=== PATIENT | female | born 1995 | race American Indian/Alaskan Native ===

== ENCOUNTER → 2019-01-16 | Emergency (ER) | payer SELFPAY ==
[~2019-01-16] MED LIST: NACL 0.9% 1000 ML 1,000 ML IV ONE; ZOFRAN IV ONE
[2019-01-16 23:51] LABS: Basophils % (Auto) 0.4 % (0.0-1.8); Eosinophils # (Auto) 0.1 K/mm3 (0.0-0.4); Eosinophils % (Auto) 0.6 % (0.0-4.3); Hematocrit 39.4 % (30.3-42.9); Hemoglobin 13.7 gm/dl (10.1-14.3); Lymphocytes # (Auto) 1.9 K/mm3 (1.2-5.4); Mean Corpuscular HGB Conc 35 % (30-34); Mean Corpuscular Volume 90 fl (79-97); Monocytes # (Auto) 0.7 K/mm3 (0.0-0.8); Platelet Count 187 K/mm3 (140-440); Red Blood Count 4.39 M/mm3 (3.65-5.03); Red Cell Distribution Width 13.2 % (13.2-15.2)
[2019-01-17 00:08] LABS: Alanine Aminotransferase 10 units/L (7-56); Albumin 4.4 g/dL (3.9-5); BUN/Creatinine Ratio 16; Blood Urea Nitrogen 11 mg/dL (7-17); Calcium 9.2 mg/dL (8.4-10.2); Hemolysis Index 2
[2019-01-17 00:32] LABS: Bilirubin,Urine MOD (Negative); Blood,Urine NEG (Negative); Color,Urine Amber (Yellow); Mucus,Urine 3+ /HPF; Urobilinogen,Urine < 2.0 mg/dL (<2.0)
[2019-01-17 00:35] LABS: Ictotest,Urine Negative (Negative)
--- NOTE | 2019-01-17 02:02 | Emergency Department Report ---
HPI - General Chief Complaint: Abdominal Pain Time Seen by Provider: 01/17/19 01:51 - HPI HPI: Room 7 The patient is a 23-year-old female presented with a chief complaint of nausea and vomiting. The patient states yesterday she went out with friends and consumed 5 drinks (normal for her). The patient states her friends told her she was very drunk and "blacked out." Patient states she awakened this afternoon at 13:00 at home and experienced frequent nausea and vomiting. Patient states her nausea and vomiting continued prompting her to come to the emergency department. Patient denies any history of fever or sick contacts. Patient states she still feels nauseous now has left lower quadrant abdominal pain that worsens whenever she vomits Location: [See above] Duration: [See above] Quality: [See above] Severity: [See above] Modifying factors: [see above] Context: [see above] Mode of transportation: [not driving] ED Past Medical Hx - Past Medical History Previous Medical History?: No - Surgical History Past Surgical History?: Yes Additional Surgical History: both ear s/p( right X2) - Family History Family history: no significant - Social History Substance Use Type: None (denies illicit drug use), Alcohol (frequently) - Medications Home Medications: Home Medications Medication Instructions Recorded Confirmed Last Taken Type Ondansetron [Zofran ODT TAB] 8 mg PO Q8HR #20 tab.rapdis 01/17/19 Unknown Rx ED Review of Systems ROS: Stated complaint: VOMITING Other details as noted in HPI Constitutional: no symptoms reported Eyes: denies: eye pain ENT: denies: throat pain Respiratory: no symptoms reported Cardiovascular: denies: chest pain Endocrine: no symptoms reported Gastrointestinal: nausea, vomiting Genitourinary: denies: dysuria Musculoskeletal: denies: back pain Neurological: denies: headache Physical Exam - Physical Exam Vital Signs: Vital Signs 01/16/19 01/17/19 23:01 01:52 Temperature 98.7 F Pulse Rate 85 Respiratory 18 18 Rate Blood Pressure 104/66 O2 Sat by Pulse 98 Oximetry Physical Exam: GENERAL: The patient is well-developed well-nourished female lying on stretcher not appearing to be in acute distress. [] HEENT: Normocephalic. Atraumatic. Extraocular motions are intact. Patient has moist mucous membranes. NECK: Supple. No meningitic signs are noted. Trachea midline CHEST/LUNGS: Clear to auscultation. There is no respiratory distress noted. HEART/CARDIOVASCULAR: Regular. There is no tachycardia. There is no gallop rub or murmur. ABDOMEN: Abdomen is soft, with mild discomfort to palpation in the left lower quadrant. There is no rebound or guarding. Patient has normal bowel sounds. There is no abdominal distention. SKIN: There is no rash. There is no edema. There is no diaphoresis. NEURO: The patient is awake, alert, and oriented. The patient is cooperative. The patient has no focal neurologic deficits. The patient has normal speech. Cranial nerves II through XII grossly intact, no drift MUSCULOSKELETAL: There is no evidence of acute injury. ED Course Vital Signs 01/16/19 01/17/19 23:01 01:52 Temperature 98.7 F Pulse Rate 85 Respiratory 18 18 Rate Blood Pressure 104/66 O2 Sat by Pulse 98 Oximetry - Reevaluation(s) Reevaluation #1: 01/17/19 02:54 Patient tolerated po ED Medical Decision Making - Lab Data Result diagrams: 01/16/19 23:27 01/16/19 23:27 Laboratory Tests 01/16/19 01/16/19 01/16/19 23:27 23:27 23:27 WBC 9.2 RBC 4.39 Hgb 13.7 Hct 39.4 MCV 90 MCH 31 MCHC 35 H RDW 13.2 Plt Count 187 Lymph % (Auto) 21.0 Caldwell % (Auto) 8.0 H Eos % (Auto) 0.6 Baso % (Auto) 0.4 Lymph # 1.9 Caldwell # 0.7 Eos # 0.1 Baso # 0.0 Seg Neutrophils % 70.0 Seg Neutrophils # 6.4 Sodium 143 Potassium 3.6 Chloride 102.5 Carbon Dioxide 28 Anion Gap 16 BUN 11 Creatinine 0.7 Estimated GFR > 60 BUN/Creatinine Ratio 16 Glucose 83 Calcium 9.2 Total Bilirubin 0.90 AST 16 ALT 10 Alkaline Phosphatase 66 Total Protein 7.8 Albumin 4.4 Albumin/Globulin Ratio 1.3 HCG, Qual Negative Urine Color Urine Turbidity Urine pH Ur Specific Orla Urine Protein Urine Glucose (UA) Urine Ketones Urine Blood Urine Nitrite Urine Bilirubin Urine Ictotest Urine Urobilinogen Ur Leukocyte Esterase Urine WBC (Auto) Urine RBC (Auto) U Epithel Cells (Auto) Urine Mucus 01/16/19 23:29 WBC RBC Hgb Hct MCV MCH MCHC RDW Plt Count Lymph % (Auto) Caldwell % (Auto) Eos % (Auto) Baso % (Auto) Lymph # Caldwell # Eos # Baso # Seg Neutrophils % Seg Neutrophils # Sodium Potassium Chloride Carbon Dioxide Anion Gap BUN Creatinine Estimated GFR BUN/Creatinine Ratio Glucose Calcium Total Bilirubin AST ALT Alkaline Phosphatase Total Protein Albumin Albumin/Globulin Ratio HCG, Qual Urine Color Mery Urine Turbidity Slightly-cloudy Urine pH 5.0 Ur Specific Orla 1.034 H Urine Protein 30 mg/dl Urine Glucose (UA) Neg Urine Ketones 20 Urine Blood Neg Urine Nitrite Neg Urine Bilirubin Mod Urine Ictotest Negative Urine Urobilinogen < 2.0 Ur Leukocyte Esterase Neg Urine WBC (Auto) 5.0 Urine RBC (Auto) 8.0 U Epithel Cells (Auto) 4.0 Urine Mucus 3+ - Differential Diagnosis veisalgia Critical care attestation.: If time is entered above; I have spent that time in minutes in the direct care of this critically ill patient, excluding procedure time. ED Disposition Clinical Impression: Nausea & vomiting, Hangover effect Disposition: DC-01 TO HOME OR SELFCARE Is pt being admited?: No Does the pt Need Aspirin: No Condition: Stable Instructions: Abdominal Pain (ED) Additional Instructions: Return to the emergency department immediately should you develop worsening symptoms, fever, inability to tolerate food or liquid or any other concerns. Prescriptions: Ondansetron [Zofran ODT TAB] 8 mg PO Q8HR #20 tab.rapdis Referrals: CHERELLE LEDBETTER MD [Staff Physician] - 3-5 Days Time of Disposition: 02:56
[2019-01-17 03:12] VITALS: BP 112/60
== END | disposition home or self-care (01) ==
LOC: ED 22:54
DX: R11.2 Nausea with vomiting, unspecified (principal)
CPT/HCPCS: 36415; 80053; 81001; 84703; 85025; 96361; 96374; J2405; J7030